=== PATIENT | female | born 1935 | race Caucasian/White ===

== ENCOUNTER 2019-02-04 16:10 | Observation (INO) | payer MEDICARE ==
[~2019-02-04] VITALS: Ht 166.4 cm; Wt 60.9 kg
[2019-02-04] MEDS ORDERED: METHOTREXATE2.5 MG PO (16:45)
[2019-02-04] MEDS ORDERED: FOLIC ACID1 MG PO (16:46)
--- NOTE | 2019-02-04 17:16 | NUR ---
ASSISTED PT TO RESTROOM. 1:1 ASSIST. PT TOLERATED WELL.
[2019-02-04 18:00] LABS: BASOPHILS 0.5 % (0-2); EOSINOPHILS 1.7 % (0-7); HEMATOCRIT 30.1 % (36.0-48.0); HEMOGLOBIN 9.9 g/dL (12-16); IMMATURE GRANULOCYTES 0.2 % (0-5); LYMPHOCYTES 12.9 % (15-50); MCH 32.5 pg (26.0-34.0); MCHC 32.9 g/dL (31.0-37.0); MCV 98.7 fL (80.0-100.0); MEAN PLATELET VOLUME 8.9 fL (7.4-10.4); MONOCYTES 4.6 % (2-11); NEUTROPHILS 80.1 % (40-80); PLATELET COUNT 204 10x3/uL (130-400); RBC 3.05 10x6/uL (4.00-5.40); RDW 13.7 % (11.5-14.5); WBC 8.1 10x3/uL (4.8-10.8)
[2019-02-04 18:09] LABS: INR 1.07 (0.85-1.17); PROTIME 13.4 SECONDS (11.6-15.0)
[2019-02-04 18:20] LABS: ALBUMIN 3.8 g/dL (3.4-5.0); ANION GAP 12.2 mmol/L (8-16); BILIRUBIN - TOTAL 0.26 mg/dL (0.2-1.3); CALCIUM 8.5 mg/dL (8.5-10.1); CARBON DIOXIDE 27.1 mmol/L (21.0-32.0); CREATININE - SERUM 0.8 mg/dL (0.6-1.3); MAGNESIUM - SERUM 1.7 mg/dL (1.8-2.4); POTASSIUM - SERUM 4.3 mmol/L (3.5-5.1); PROTEIN - SERUM 7.3 g/dL (6.4-8.2)
--- NOTE | 2019-02-04 19:00 | NUR ---
PT ARRIVED TO FLOOR WITHOUT DISTRESS. ALERT AND ORIENTED. AT BEDSIDE. BRUISING TO FOREHEAD. RIGHT ARM IN SPLINT. UP WITH ASSIST. ASSISTED PT TO BATHROOM, GAIT UNSTEADY. CONFUSED TO SITUATION AT TIMES. STATES SHE DOES NOT REMEMBER ANYTHING ABOUT FALLING. BILAT HAIR DESIGNER EQUAL. PERRLA. STATES NO PAIN. PERIPHERAL PULSES STRONG. LUNG SOUNDS CTA. PT REQUESTED AND GIVEN WATER AND JELLO. WITHOUT OTHER NEEDS AT THIS TIME. BED ALARM ON, CL IN REACH. WILL CTM
[2019-02-04 20:00] VITALS: BP 150/83
[2019-02-04 22:27] VITALS: Ht 166.4 cm; Wt 60.9 kg
[2019-02-05] VITALS: BP 115/55
[2019-02-05 04:00] VITALS: BP 128/70
--- NOTE | 2019-02-05 07:52 | NUR ---
PATIENT SITTING UP IN BED, SPOUSE AT BEDSIDE, PT STATED SHE HAD A VERY GOOD NIGHT AND READY TO SEE DOCTOR SO THEY CAN GO HOME. ADVISED PT THAT IT IS UP TO THE DR TO DETERMINE IF SHE IS WELL ENOUGH TO BE DC. BED IN LOW POSITION, CL IN REACH CONTINUE WITH PLAN OF CARE
[2019-02-05 08:41] VITALS: BP 150/83
--- NOTE | 2019-02-05 11:02 | NUR ---
PT SPOUSE IN [facility] STATING DRS HAVE ADVISED PT CAB GO HOME, ADVISED KATIE HOSPITALIST WILL HAVE TO BE THE ONE TO DO THE DC. BED IN LOW POSITION CL IN REACH
[2019-02-05 11:33] LABS: BASOPHILS 0.4 % (0-2); HEMATOCRIT 32.8 % (36.0-48.0); HEMOGLOBIN 10.5 g/dL (12-16); IMMATURE GRANULOCYTES 0.3 % (0-5); LYMPHOCYTES 16.3 % (15-50); MCH 31.5 pg (26.0-34.0); MCV 98.5 fL (80.0-100.0); MEAN PLATELET VOLUME 9.5 fL (7.4-10.4); MONOCYTES 8.6 % (2-11); NEUTROPHILS 73.4 % (40-80); RBC 3.33 10x6/uL (4.00-5.40); RDW 13.9 % (11.5-14.5); WBC 7.1 10x3/uL (4.8-10.8)
[2019-02-05 11:38] LABS: PLATELET COUNT 247 10x3/uL (130-400)
[2019-02-05 11:52] LABS: ALBUMIN 3.7 g/dL (3.4-5.0); ANION GAP 11.6 mmol/L (8-16); BILIRUBIN - TOTAL 0.42 mg/dL (0.2-1.3); CALCIUM 8.8 mg/dL (8.5-10.1); CARBON DIOXIDE 27.7 mmol/L (21.0-32.0); CREATININE - SERUM 0.9 mg/dL (0.6-1.3); POTASSIUM - SERUM 4.3 mmol/L (3.5-5.1); PROTEIN - SERUM 7.6 g/dL (6.4-8.2)
[2019-02-05 13:24] VITALS: BP 168/97
[2019-02-05] MEDS ORDERED: ACETAMINOPHEN500 M1 PO (13:52)
--- NOTE | 2019-02-05 16:15 | NUR ---
DISCHARGED TO HOME. VERY HAPPY TO GO. DENIES NEEDS. NO CHANGES NOTED. AGREE WITH TREASURY ASSISTANT ASSESSMENT.
== END 2019-02-05 15:30 | disposition home or self-care (01) ==
LOC: D.ER 16:10 → D.MS 18:04 → OBSVTIME 18:05 → D.MS 02-05 15:30
PROVIDERS: Emergency Medicine; Family Medicine; ADMIT Emergency Medicine; ATTEND Emergency Medicine
DX: S62.616A Displaced fracture of proximal phalanx of right little finger, initial encounter for closed fracture (principal); X58.XXXA Exposure to other specified factors, initial encounter; S00.93XA Contusion of unspecified part of head, initial encounter; W19.XXXA Unspecified fall, initial encounter; D64.9 Anemia, unspecified; I60.9 Nontraumatic subarachnoid hemorrhage, unspecified; E83.42 Hypomagnesemia